=== PATIENT | male | born 1960 | race Caucasian/White ===

== ENCOUNTER 2016-11-05 07:52 | Day surgery (SDC) | payer OTHER ==
[~2016-11-05] VITALS: Ht 167.6 cm; Wt 95.8 kg
[2016-11-05 09:13] VITALS: Ht 167.6 cm; Wt 95.8 kg
[2016-11-05] MEDS ORDERED: GABA300C16 PO (09:23)
[2016-11-05] MEDS ORDERED: GLYB5TAB3 PO (09:23)
[2016-11-05] MEDS ORDERED: ATOR40TA68 PO (09:23)
[2016-11-05] MEDS ORDERED: METF1000 PO (09:23)
[2016-11-05] MEDS ORDERED: BENA10TA48 PO (09:23)
[2016-11-05] MEDS ORDERED: PANT40TA4 PO (09:23)
[2016-11-05 10:40] VITALS: BP 120/59; PULSE 59; RESP 12
[2016-11-05] MEDS ORDERED: MIDAZOLAM 1 MG/ML 2 ML INJ ONE ×2 (12:04)
[2016-11-05] MEDS ORDERED: FENTAnyl 50 MCG/ML VIAL ONE (12:04)
--- NOTE | 2016-11-05 18:10 | GILP ---
DATE OF PROCEDURE: 11/05/2016 PROCEDURE: Colonoscopy. INDICATION: A 56-year-old male undergoing this procedure for screening colonoscopy. The risk of th e procedure, related and unrelated complications, anesthetic risks, sedative risks, alternatives dis cussed and informed consent was obtained. DESCRIPTION OF PROCEDURE: The patient was brought to the GI lab, sedated with Versed and fentanyl. After obtaining sedation, scope was passed with much ease into the rectum and advanced slowly throu gh sigmoid, descending, transverse colon all the way into cecum. Appendiceal orifice and IC valve i dentified. Preparation was inadequate. There was a semi-formed stool throughout the procedure prec luding the visibility by 5 to 7 to 8%. While coming out, mucosa thoroughly inspected. The rest of the colon was normal. No gross lesion was identified. No diverticula. No polyps seen. Retroversi on done, small hemorrhoids seen. IMPRESSION: 1. Normal findings all the way into the cecum except for the hemorrhoids. 2. Clarity was good. Cleanliness was adequate. PLAN: Stay on high fiber diet. Dictated By: JAGJIT DIAZ/GAVI Conf#: [id number] DID#: [id number] CC: EVELYN BROTHERS MD; JAGJIT MACEDO MD;*EndCC*
== END 2016-11-05 16:05 | disposition home or self-care (01) ==
LOC: GIL 07:52
PROVIDERS: ATTEND Internal Medicine Gastroenterology
DX: Z12.11 Encounter for screening for malignant neoplasm of colon (principal); I10 Essential (primary) hypertension; E78.5 Hyperlipidemia, unspecified
CPT/HCPCS: 45378; 82962; J2250; J3010